=== PATIENT | male | born 1960 | race Caucasian/White ===

== ENCOUNTER → 2016-09-19 | Outpatient (CLI) | payer OTHER ==
--- NOTE | 2016-09-19 16:41 | DX ---
Chest, Two Views at 1617 hours History: SHORTNESS OF BREATH R06.02 Comparison: None. Findings: Cardiac silhouette is mildly enlarged. Large right lower lung pleural-parenchymal opacity o pacifying 50% of the right hemithorax likely representing pleural effusion and underlying pneumonia o r atelectasis. Left lung is clear. No pneumothorax. Impression: 1. Large right pleural effusion with underlying pneumonia or atelectasis in the right middle lobe. 2. Recommend CT chest with contrast for further evaluation. Findings and recommendations discussed with YESICA Saha at 16:39 hour, 09/19/2016. Final report concurs with initial preliminary interpretation.
== END ==
LOC: BRMIMAGING 15:17
PROVIDERS: ATTEND Physician Assistant
DX: J98.4 Other disorders of lung (principal)
CPT/HCPCS: 71020-PO

== ENCOUNTER → 2017-03-23 | Outpatient (CLI) | payer OTHER | LOC: BRMIMAGING 16:56 | PROVIDERS: ATTEND Physician Assistant | DX: M19.071 Primary osteoarthritis, right ankle and foot (principal) | CPT/HCPCS: 73630-PO ==